=== PATIENT | male | born 1985 | race Caucasian/White ===

== ENCOUNTER 2022-10-01 06:24 | Emergency (ER) | payer MEDICAID, SELFPAY ==
--- NOTE | ~2022-10-01 | US_ITS ---
EXAMINATION: US SCROTUM CLINICAL INFORMATION: Left testicular pain. COMPARISON: CT abdomen of same day TECHNIQUE: A sonogram of the scrotum was performed assessing galicia-scale appearance and color Doppler flow. Spectral Doppler analysis of the arterial and venous flow were performed in the testes bilaterally. FINDINGS: RIGHT: Right testicle measures 4.2 x 2.3 x 3.1 cm, volume 15.4 mL. No focal testicular parenchymal lesions are visualized. Spectral Doppler analysis of the arterial and venous flow is normal in the right testis. Right epididymal head is normal in size. No right hydrocele or varicocele is seen. Right epididymal Doppler flow is normal. LEFT: Left testicle measures 4.0 x 2.0 x 3.2 cm, volume 13.4 mL. No focal testicular parenchymal lesions are visualized. Spectral Doppler analysis of the arterial and venous flow is increased in the left testis compared to right. Left epididymal head is normal in size. No left hydrocele or varicocele is seen. Left epididymal Doppler flow is increased compared to right. US/US scrotum doppler IMPRESSION: Findings consistent with epididymal orchitis without abscess or abnormal mass appreciated.
--- NOTE | ~2022-10-01 | CT_ITS ---
EXAMINATION: CT ABDOMEN AND PELVIS WITHOUT CONTRAST CLINICAL INFORMATION: Abdominal pain in the left upper and lower quadrants as well as the right lower quadrant. COMPARISON: None available.. TECHNIQUE: Multidetector volumetric imaging was performed from the lung bases to the pubic symphysis without contrast. Sagittal and coronal reformatted images were obtained on the technologist workstation. This CT examination was performed using dose optimization techniques as appropriate, variously including the following: *Automated exposure control. *Adjustment of mA and/or kV according to patient size (this includes techniques or standardized protocols for targeted exams where dose is matched to indication/reason for exam; i.e. extremities or head). *Use of iterative reconstruction technique. DLP: 754 mGy-cm FINDINGS: LUNG BASES: No abnormalities of the visualized lung bases. No demonstrated abnormalities of the visualized cardiac structures. ABDOMEN/PELVIS: Liver, Biliary Ducts, and Gallbladder: The unenhanced liver is normal in size and attenuation without focal hepatic lesions or biliary ductal dilatation. The gallbladder is physiologically distended without radiopaque gallstones, pericholecystic fluid, or significant gallbladder wall thickening. Pancreas: Nonspecific mild diffuse smooth narrowing of the normal pancreatic lobulations. Potential minimal peripancreatic fat stranding. No demonstrated focal pancreatic lesions nor pancreatic ductal dilatation. Adrenal Glands: The adrenal glands are normal in appearance. Spleen: The spleen is enlarged, measuring 13 cm in long axis. No demonstrated focal splenic lesions on the noncontrast evaluation. Kidneys and Ureters: The unenhanced kidneys are normal in size without evidence of nephrolithiasis or hydronephrosis. No ureterolithiasis or hydroureter. Urinary Bladder: The urinary bladder is partially distended without focal wall thickening. No bladder calculi are demonstrated. Gastrointestinal System: The stomach is decompressed and therefore not well evaluated on this exam. The small bowel is of normal caliber. The colon is normal in appearance without focal wall thickening or pericolonic inflammatory change. Normal appendix. Genitourinary: Normal appearance of the prostate gland. Intra-abdominal and Retroperitoneal Spaces: No intra-abdominal free fluid collections or gas. No mesenteric, retroperitoneal, or inguinal lymphadenopathy. VASCULATURE: The abdominal aorta is of normal contour and caliber. MUSCULOSKELETAL: Mild multilevel degenerative changes of the spine. Mild right convex curvature of the lumbar spine. No lytic or sclerotic osseous lesions demonstrated. No soft tissue masses demonstrated. CT/CT abdomen pelvis wo IV con IMPRESSION: 1. Potential mild peripancreatic fat stranding. No demonstrated discrete lesion or fluid collection associated with the pancreas. Recommend correlation for signs of potential mild interstitial edematous pancreatitis. 2. Nonspecific mild splenomegaly. 3. No additional CT abnormalities to explain the patient's symptoms.
--- NOTE | ~2022-10-01 | US_ITS ---
EXAMINATION: US SCROTUM CLINICAL INFORMATION: Left testicular pain. COMPARISON: CT abdomen of same day TECHNIQUE: A sonogram of the scrotum was performed assessing galicia-scale appearance and color Doppler flow. Spectral Doppler analysis of the arterial and venous flow were performed in the testes bilaterally. FINDINGS: RIGHT: Right testicle measures 4.2 x 2.3 x 3.1 cm, volume 15.4 mL. No focal testicular parenchymal lesions are visualized. Spectral Doppler analysis of the arterial and venous flow is normal in the right testis. Right epididymal head is normal in size. No right hydrocele or varicocele is seen. Right epididymal Doppler flow is normal. LEFT: Left testicle measures 4.0 x 2.0 x 3.2 cm, volume 13.4 mL. No focal testicular parenchymal lesions are visualized. Spectral Doppler analysis of the arterial and venous flow is increased in the left testis compared to right. Left epididymal head is normal in size. No left hydrocele or varicocele is seen. Left epididymal Doppler flow is increased compared to right. US/US scrotum IMPRESSION: Findings consistent with epididymal orchitis without abscess or abnormal mass appreciated.
[2022-10-01 06:29] VITALS: BP 139/64; PULSE 92; RESP 22; TEMP 36.7; O2SAT 99; BMI 29.2
[2022-10-01 06:50] LABS: MANUAL DIFF FLAG NO
[2022-10-01 06:53] LABS: Basophils Percent Auto 0.3 % (0-2); Eosinophils Absolute Auto 0.1 X10*3/uL (0.0-0.4); Hematocrit 46.2 % (42.0-52.0); Hemoglobin 16.8 g/dl (14.0-18.0); Imm Gran Abs Auto 0.01 X10*3/uL (0.00-0.03); Imm Gran Pct Auto 0.2 % (0.0-0.4); Lymphocytes Absolute Auto 1.3 X10*3/uL (1.2-4.9); Mean Corpuscular HGB Conc 36.4 g/dl (31.0-36.0); Mean Corpuscular Hemoglobin 31.3 pg (27.0-33.0); Mean Platelet Volume 9.2 fL (9.4-12.4); Monocytes Absolute Auto 0.3 X10*3/uL (0.1-1.2); Monocytes Percent Auto 4.5 % (2-11); Neutrophils Absolute Auto 4.5 x10*3/uL (2.0-8.3); Platelet Count 193 X10*3/uL (160-400); Red Blood Count 5.37 X10*6/uL (4.60-5.80); White Blood Count 6.2 X10*3/uL (4.8-10.8)
[2022-10-01 07:07] LABS: Anion Gap 16 (12-20); Blood Urea Nitrogen 17 mg/dL (9-16); Calcium 9.5 mg/dL (8.4-10.2); Carbon Dioxide 26 mmol/L (22-29); Chloride 102 mmol/L (96-108); Creatinine Clr Calc Pharmacy 124.4; Estimated Glomerular Filt Rate > 60; Glucose Random 106 mg/dL (60-115); Lipase 31 U/L (8-78); Potassium 4.1 mmol/L (3.3-5.1); Sodium 140 mmol/L (135-145)
[2022-10-01 07:25] VITALS: BP 131/73; PULSE 92; RESP 14; TEMP 36.9
--- NOTE | 2022-10-01 07:47 | PC.NURSE ---
pt. complains of LUQ pain as well as pelvic area pain 510. He states he hurt his left testicle a few days ago. does have a history of kidney stones but states this does not feel like kidney stones. will give us a urine sample
[2022-10-01 08:04] LABS: Appearance Urine Clear; Color Urine Yellow; Glucose Urine UA Negative (Negative); Leukocyte Esterase Urine Negative (Negative); Nitrite Urine Negative (Negative); PH 8.5 (5.0-9.0); Specific Gravity - Urine 1.015 (1.005-1.025); Urine Blood Negative (Negative); Urine Ketones 15 mg/dL (Negative); Urine Protein Negative (Neg-Trace)
[2022-10-01 08:31] LABS: Alanine Aminotransferase 20 U/L (0-40); Albumin Level 4.6 g/dL (3.5-5.0); Alkaline Phosphatase 71 U/L (39-117); Aspartate Amino Transferase 13 U/L (5-37); Bilirubin Direct 0.4 mg/dL (0.0-0.5); Bilirubin Total 1.2 mg/dL (0.0-1.0)
--- NOTE | 2022-10-01 08:31 | ED.ABDPAIN ---
HPI - Abdominal Pain General Chief Complaint: General Medical Stated Complaint: pain in left side Time Seen by Provider: 10/01/22 08:05 Source: patient Mode of arrival: ambulatory Limitations: no limitations History of Present Illness HPI narrative: 37yoM c PMHx of kidney stones presenting to the ER with complaints of left upper quadrant/left flank/left lower quadrant/suprapubic and right lower quadrant abdominal pain that started approximately to a.m. when he was sleeping woke him up out of his sleep. He reports he has never had this pain in the past. Does not feel like his normal kidney stones. He reports associated nausea and feeling like having to catch his breath. He reports a few days he pinched his left testicle and since then he has been having some soreness the left testicle. otherwise denies any other symptoms related to this. He denies any fevers, chills, dizziness, headaches, neck pain/stiffness, sore throat, nasal congestion/rhinorrhea, cough, chest pain, shortness of breath, dyspnea on exertion, orthopnea, palpitations, paresthesias, back pain, dysuria, hematuria, abnormal penile discharge, black or bloody stools, thoughts of STDs, recent travel or sick contacts, rashes or any other symptoms complaints or concerns at this time. MD elicited complaint: abdominal pain and flank pain Pertinent past history: kidney stones Onset (ago): hour(s) (Since 02:00 prior to arrival) Pain Consistency: constant Location: LUQ, RLQ, LLQ, L flank and suprapubic Severity: moderate Quality: aching Radiation: none Migration to: no migration Exacerbating factors: movement Relieving factors: nothing Associated symptoms: nausea Related Data Previous Rx's Medication Instructions Recorded doxycycline monohydrate 100 mg 100 mg PO BID 10 days #20 tabs 10/01/22 tablet Allergies Allergy/AdvReac Type Severity Reaction Status Date / Time No Known Allergies Allergy Verified 10/01/22 06:37 Review of Systems Review of Systems Constitutional : No Fever, No Chills, No Night Sweats, No Fatigue, No Malaise Cardiovascular : No Chest Pain, No SOB Respiratory : No Cough, No Sputum, No Wheezing, No Dyspnea Gastrointestinal : + Nausea, No Vomiting, No Diarrhea, + abdominal Pain, No Hematochezia, No Melena Genitourinary : No irregular bleeding, No Dysuria, No Urinary Frequency, No Hematuria,No Urinary Incontinence, No Urgency, + Flank Pain, + left testicular pain, no thoughts of STDs Musculoskeletal : No joint pain, No Myalgias, No Joint Swelling Skin : No Skin Lesions, No rash Neuro : No Weakness, No Numbness, No Paresthesias, No Loss of Consciousness, No Dizziness, No Headache Heme/Lymph: No Lymphadenopathy Endocrine : No Temperature Intolerance Yes all other systems are reviewed and are negative [facility] Past Medical History Attestation statement: The following information was validated with the patient. Source: old records reviewed and nursing notes reviewed Social History Social History Advance Directives: No Advance Directives Information Provided: No Physical Exam ED Vital Signs: Vital Signs - 24 hr 10/01/22 06:29 10/01/22 07:25 10/01/22 09:21 Temperature 98.1 F 98.4 F 98.5 F Pulse Rate 92 92 87 Respiratory Rate 22 H 14 14 Blood Pressure 139/64 131/73 118/73 Pulse Oximetry 99 98 Oxygen Delivery Method Room Air Room Air Room Air BMI result Body Mass Index 29.2 vital signs have been reviewed as normal and appeared to be correct. Blood pressure normal. Heart rate normal. Respiration rate 22. Temperature normal. Oxygen saturation normal. Appearance: Alert. Oriented X3. No acute distress. Head: Normal external exam. Normocephalic. Atraumatic. Eyes: PERRLA. EOMI. Conjunctiva and sclera normal. Eyelids normal. ENT: Pharynx normal. Uvula midline. Moist mucous membranes. No lesions/ulcerations or masses noted on the tongue. Normal voice. No trismus noted. No drooling noted. No muffled voice noted. Neck: Normal inspection. Neck supple. FROM. No adenopathy. Thyroid Normal. No tracheal deviation noted. No crepitus is noted. No meningeal signs. No neck mass noted. No signs of trauma noted. CVS: Normal heart rate and rhythm. Heart sound normal. Pulses normal throughout. No murmurs/rales/gallops. Respiratory: No respiratory distress. Painless inspiration. Breath sounds normal. No wheezes/rales/rhonchi noted. Chest nontender. No crepitus is noted. No signs of trauma noted. No accessory muscle usage noted or decreased air movement noted. Abdomen: Soft and moderate tenderness palpation with guarding to RLQ/LLQ/LUQ/Left Flank and suprapubic aspect of abdomen. Bowel sounds normal in all 4 quadrants. No distention noted. No organomegaly noted. No visible injury noted. Negative Rovsing sign. Negative obturator's sign. Negative psoas sign. Negative Villa sign. : Chaperoned by DOUGIE Watson. Normal external exam. No masses/lumps/ecchymosis/edema/erythema/lacerations/lesions/vesicles/induration or tenderness noted. No hernia noted. No inguinal lymphadenopathy noted. Normal penis free of discharge. The scrotum is normal. Testicles are both descended bilaterally and appear normal. No hydrocele or scrotal mass/swelling noted. No varicocele. Epididymides normal. No blue dot sign. Back: No CVA tenderness. Full range of motion noted. Nontender. No signs of trauma. Patient neuro intact bilaterally and distally on all 4 extremities. Patient's reflexes intact bilaterally and distally on all 4 extremities. No rashes/lesion/induration/fluctuance or signs of infection noted. Skin: Skin warm and dry. Normal skin color. Normal skin turgor. No rashes/lesions/lacerations noted. Extremities: Extremities exhibit normal range of motion and nontender. Neuro: Oriented X 3. No motor deficit. No sensory deficit. Reflexes normal. Normal steady gait. No focal neuro deficits noted. CN's II-XII intact bilaterally? Vascular: + radial pulses/+ 2 distal pedal pulses/+2 dorsalis pedis b/l. Normal cap refill. No cyanosis noted to upper extremity nails and lower extremity toes nails. Course Course Course Narrative: 8am - 37yoM c PMHx of kidney stones presenting to the ER with complaints of left upper quadrant/left flank/left lower quadrant/suprapubic and right lower quadrant abdominal pain that started approximately to a.m. when he was sleeping woke him up out of his sleep. He reports he has never had this pain in the past. Does not feel like his normal kidney stones. He reports associated nausea and feeling like having to catch his breath. He reports a few days he pinched his left testicle and since then he has been having some soreness the left testicle. otherwise denies any other symptoms related to this. Abdominal exam without peritoneal signs. No evidence of acute abdomen at this time. Well appearing. Low suspicion for acute hepatobiliary disease (includng acute cholecystitis), acute pancreatitis, PUD (including perforation), acute infectious processes (pneumonia, hepatitis, pyelonephritis), acute appendicitis, vascular catastrophe, bowel obstruction or viscus perforation. Presentation not consistent with other acute, emergent causes of abdominal pain at this time. Labs obtained while he was in the waiting room revealed - BUN 17. - total bilirubin 1.2. - lipase normal at 31 Otherwise all other labs are within normal limits. - UA revealed 15 ketones otherwise no evidence of UTI Plan: Will obtain testicular ultrasound along with CT scan abdomen pelvis and re-evaluate. Reevaluation(s) Reevaluation #1: CT scan of abdomen pelvis without IV contrast revealed potential mild peripancreatic fat stranding. No lesion or fluid collection a associated with the pancreas. Potential mild interstitial edematous pancreatitis. Mild splenomegaly otherwise no other acute processes to explain the patient's symptoms. - patient does not have an elevated white blood cell count, normal glucose, normal AST, and he is tolerating p.o. fluids/solids therefore less likely that this is pancreatitis although no need for admission at this time as patient is tolerating p.o. fluids as solids and pain is controlled I did not have to give him anything for pain while he was here in the emergency department he does not want anything to go home with. I printed out the results explained to the patient he should follow-up with his PCP regarding this and he develops any persistent or worsening symptoms to the left upper quadrant or develops any new symptoms such as fevers or nausea vomiting then he will need to return immediately. Scrotal ultrasound revealed epididymal orchitis without abscess or abnormal mass appreciated. - therefore at this time patient will be given for 500 mg of IM Rocephin and 100 mg of doxycycline p.o. b.i.d. for 10 days for possible STI treatment. I also sent a gonorrhea chlamydia urine along with mom's which are pending at this time. Patient understands and is agreeable to this plan. Time: 10:16 MDM - Abdominal Pain Medical Records Attestation: I reviewed the patient's medical records. Lab Data Attestation: I reviewed the patient's lab results. Result diagrams: 10/01/22 06:42 10/01/22 06:42 Labs: Lab Results 10/01/22 10/01/22 10/01/22 Range/Units 06:42 06:42 07:55 WBC 6.2 (4.8-10.8) X10*3/uL RBC 5.37 (4.60-5.80) X10*6/uL Hgb 16.8 (14.0-18.0) g/dl Hct 46.2 (42.0-52.0) % MCV 86.0 (80.0-98.0) fL MCH 31.3 (27.0-33.0) pg MCHC 36.4 H (31.0-36.0) g/dl RDW 12.0 (11.0-16.0) % Plt Count 193 (160-400) X10*3/uL MPV 9.2 L (9.4-12.4) fL Immature Gran % (Auto) 0.2 (0.0-0.4) % Neut % (Auto) 73.0 (45-73) % Lymph % (Auto) 21.0 (20-40) % [facility] [place] [facility] % (Auto) 4.5 (2-11) % Eos % (Auto) 1.0 (0-4) % Baso % (Auto) 0.3 (0-2) % Lymph # (Auto) 1.3 (1.2-4.9) X10*3/uL [facility] [place] [facility] # (Auto) 0.3 (0.1-1.2) X10*3/uL Eos # (Auto) 0.1 (0.0-0.4) X10*3/uL Baso # (Auto) 0.0 (0.0-0.2) X10*3/uL Abs Immat Gran (auto) 0.01 (0.00-0.03) X10*3/uL Absolute Neuts (auto) 4.5 (2.0-8.3) x10*3/uL Absolute Nucleated RBC 0.000 (0.0-0.012) X10*3/uL Nucleated RBC % (auto) 0.0 (0.0-0.2) /100WBC Sodium 140 (135-145) mmol/L Potassium 4.1 (3.3-5.1) mmol/L Chloride 102 (96-108) mmol/L Carbon Dioxide 26 (22-29) mmol/L Anion Gap 16 (12-20) BUN 17 H (9-16) mg/dL Creatinine 1.11 (0.5-1.4) mg/dL Estim Creat Clear Calc 124.4 Estimated GFR > 60 Random Glucose 106 (60-115) mg/dL Calcium 9.5 (8.4-10.2) mg/dL Magnesium 2.0 (1.6-2.6) mg/dL Total Bilirubin 1.2 H (0.0-1.0) mg/dL Direct Bilirubin 0.4 (0.0-0.5) mg/dL AST 13 (5-37) U/L ALT 20 (0-40) U/L Alkaline Phosphatase 71 (39-117) U/L Total Protein 7.0 (6.5-8.0) g/dL Albumin 4.6 (3.5-5.0) g/dL Lipase 31 (8-78) U/L Urine Color Yellow Urine Appearance Clear Urine pH 8.5 (5.0-9.0) Ur Specific Mcdowell 1.015 (1.005-1.025) Urine Protein Negative (Neg-Trace) mg/dL Urine Glucose (UA) Negative (Negative) mg/dL Urine Ketones 15 (Negative) mg/dL Urine Blood Negative (Negative) Urine Nitrite Negative (Negative) Ur Leukocyte Esterase Negative (Negative) Imaging Data Scrotal/Doppler ultrasound: Attestation: I personally reviewed and interpreted this imaging study as follows: Radiologist's impression: FINDINGS: RIGHT: Right testicle measures 4.2 x 2.3 x 3.1 cm, volume 15.4 mL. No focal testicular parenchymal lesions are visualized. Spectral Doppler analysis of the arterial and venous flow is normal in the right testis. Right epididymal head is normal in size. No right hydrocele or varicocele is seen. Right epididymal Doppler flow is normal. LEFT: Left testicle measures 4.0 x 2.0 x 3.2 cm, volume 13.4 mL. No focal testicular parenchymal lesions are visualized. Spectral Doppler analysis of the arterial and venous flow is increased in the left testis compared to right. Left epididymal head is normal in size. No left hydrocele or varicocele is seen. Left epididymal Doppler flow is increased compared to right. US/US scrotum IMPRESSION: Findings consistent with epididymal orchitis without abscess or abnormal mass appreciated. CT scan abdomen pelvis without IV contrast: Attestation: I personally reviewed and interpreted this imaging study as follows: Radiologist's impression: FINDINGS: LUNG BASES: No abnormalities of the visualized lung bases. No demonstrated abnormalities of the visualized cardiac structures. ABDOMEN/PELVIS: Liver, Biliary Ducts, and Gallbladder: The unenhanced liver is normal in size and attenuation without focal hepatic lesions or biliary ductal dilatation. The gallbladder is physiologically distended without radiopaque gallstones, pericholecystic fluid, or significant gallbladder wall thickening. Pancreas: Nonspecific mild diffuse smooth narrowing of the normal pancreatic lobulations. Potential minimal peripancreatic fat stranding. No demonstrated focal pancreatic lesions nor pancreatic ductal dilatation. Adrenal Glands: The adrenal glands are normal in appearance. Spleen: The spleen is enlarged, measuring 13 cm in long axis. No demonstrated focal splenic lesions on the noncontrast evaluation. Kidneys and Ureters: The unenhanced kidneys are normal in size without evidence of nephrolithiasis or hydronephrosis. No ureterolithiasis or hydroureter. Urinary Bladder: The urinary bladder is partially distended without focal wall thickening. No bladder calculi are demonstrated. Gastrointestinal System: The stomach is decompressed and therefore not well evaluated on this exam. The small bowel is of normal caliber. The colon is normal in appearance without focal wall thickening or pericolonic inflammatory change. Normal appendix. Genitourinary: Normal appearance of the prostate gland. Intra-abdominal and Retroperitoneal Spaces: No intra-abdominal free fluid collections or gas. No mesenteric, retroperitoneal, or inguinal lymphadenopathy. VASCULATURE: The abdominal aorta is of normal contour and caliber. MUSCULOSKELETAL: Mild multilevel degenerative changes of the spine. Mild right convex curvature of the lumbar spine. No lytic or sclerotic osseous lesions demonstrated. No soft tissue masses demonstrated. CT/CT abdomen pelvis wo IV con IMPRESSION: 1. Potential mild peripancreatic fat stranding. No demonstrated discrete lesion or fluid collection associated with the pancreas. Recommend correlation for signs of potential mild interstitial edematous pancreatitis. 2. Nonspecific mild splenomegaly. 3. No additional CT abnormalities to explain the patient's symptoms. ? Discharge Plan Discharge Clinical Impression: Acute epididymitis, Acute pancreatitis, Acute orchitis Patient Disposition: Home, Self-Care Instructions: Pancreatitis (ED), Epididymo-Orchitis (ED) Additional Instructions: You have pending lab results. If any are positive you will be contacted within 5-7 days. If you do not hear from us the results were negative. Prescriptions: New doxycycline monohydrate 100 mg tablet 100 mg PO BID 10 Days Qty: 20 0RF Referrals: Rojas Kapadia MD [Primary Care Provider] - 2 days (For follow-up regarding your CT scan results of the pancreas)
[2022-10-01 09:21] VITALS: BP 118/73; PULSE 87; RESP 14; TEMP 36.9; O2SAT 98
[2022-10-01 11:17] VITALS: BP 126/68; PULSE 78; RESP 14; TEMP 36.8; O2SAT 99
[2022-10-01] MEDS: cefTRIAXone sodium 500 MG, Lidocaine HCl 1 % MPF 1 ML IM (11:27)
[2022-10-01 12:06] LABS: CT PCR NOT DETECTED (Not Detect.); NG PCR NOT DETECTED (Not Detect.)
[2022-10-02 05:16] LABS: Syphilis Screen Nonreactive (Nonreactive)
[2022-10-05 22:34] LABS: Mumps Virus IgM Antibody <1:20 titer
== END 2022-10-01 11:34 | disposition home or self-care (01) ==
PROVIDERS: Physician Assistant Medical; Emergency Provider Emergency Medicine; PCP Internal Medicine
DX: N45.1 Epididymitis (principal); K85.90 Acute pancreatitis without necrosis or infection, unspecified; N45.2 Orchitis; R10.12 Left upper quadrant pain; R10.31 Right lower quadrant pain; Z79.899 Other long term (current) drug therapy
CPT/HCPCS: 36415; 74176; 76870; 80048; 80076; 81003; 83690; 83735; 85025; 86735; 86780; 87491; 87591; 93975; 96372; 99283; 99284; J0696

== ENCOUNTER 2022-10-19 14:12 | Emergency (ER) | payer MEDICAID, SELFPAY ==
[2022-10-19 14:22] VITALS: BP 153/85; PULSE 103; RESP 20; TEMP 37.2; O2SAT 98; BMI 29.2
--- NOTE | 2022-10-19 14:27 | ED.GENADULT ---
HPI - General Adult General Chief complaint: General Medical <ZACHARIAH Méndez - Last Filed: 10/23/22 12:32> Stated complaint: dizzy, nausea, genital issues <ZACHARIAH Méndez - Last Filed: 10/23/22 12:32> Time Seen by Provider: 10/19/22 21:18 <ZACHARIAH Méndez - Last Filed: 10/23/22 12:32> Source: patient <Benjamin Huston MD - Last Filed: 10/19/22 22:18> Mode of arrival: ambulatory <Benjamin Huston MD - Last Filed: 10/19/22 22:18> Limitations: no limitations <Benjamin Huston MD - Last Filed: 10/19/22 22:18> History of Present Illness HPI narrative: Patient complaining of chronic right testicular pain off and on was seen here 2 weeks ago ultrasound was normal no swelling or testicle no penile discharge at this time patient denies any significant pain. Patient had ultrasound done in the triage which was normal UA was normal <Benjamin Huston MD - Last Filed: 10/19/22 22:18> Related Data Home medications: Previous Rx's Medication Instructions Recorded doxycycline monohydrate 100 mg 100 mg PO BID 10 days #20 tabs 10/01/22 tablet <ZACHARIAH Méndez - Last Filed: 10/23/22 12:32> Allergies/adverse reactions: Allergies Allergy/AdvReac Type Severity Reaction Status Date / Time No Known Allergies Allergy Verified 10/01/22 06:37 <ZACHARIAH Méndez - Last Filed: 10/23/22 12:32> Review of Systems Review of Systems: Yes all other systems are reviewed and are negative <Benjamin Huston MD - Last Filed: 10/19/22 22:18> [facility] Social History Social History: Social History Advance Directives: No Advance Directives Information Provided: No <ZACHARIAH Méndez Last Filed: 10/23/22 12:32> Physical Exam ED Vital Signs: Vital Signs - 24 hr 10/19/22 14:22 10/19/22 21:38 Temperature 99.0 F 99.3 F Pulse Rate 103 H 78 Respiratory Rate 20 20 Blood Pressure 153/85 H 113/67 Pulse Oximetry 98 96 Oxygen Delivery Method Room Air Room Air BMI result Body Mass Index 29.2 <ZACHARIAH Méndez - Last Filed: 10/23/22 12:32> Vital Signs - 24 hr 10/19/22 14:22 10/19/22 21:38 Temperature 99.0 F 99.3 F Pulse Rate 103 H 78 Respiratory Rate 20 20 Blood Pressure 153/85 H 113/67 Pulse Oximetry 98 96 Oxygen Delivery Method Room Air Room Air BMI result Body Mass Index 29.2 <Benjamin Huston MD - Last Filed: 10/19/22 22:18> Const General: cooperative, healthy appearing and comfortable <Benjamin Huston MD - Last Filed: 10/19/22 22:18> Resp Effort & Inspection: normal respiratory effort <Benjamin Huston MD - Last Filed: 10/19/22 22:18> Auscultation: clear to auscultation bilaterally <Benjamin Huston MD - Last Filed: 10/19/22 22:18> Cardio Rate: regular rate <Benjamin Huston MD - Last Filed: 10/19/22 22:18> Rhythm: regular rhythm <Benjamin Huston MD - Last Filed: 10/19/22 22:18> GI Palpation (GI): Soft to palpation and nontender <Benjamin Huston MD - Last Filed: 10/19/22 22:18> General: Yes no CVA tenderness <Benjamin Huston MD - Last Filed: 10/19/22 22:18> Male General Exam: Yes normal external exam, No hernia and No inguinal lymphadenopathy <Benjamin Huston MD - Last Filed: 10/19/22 22:18> Penis: normal penis <Benjamin Huston MD - Last Filed: 10/19/22 22:18> Scrotum: scrotum normal <Benjamin Huston MD - Last Filed: 10/19/22 22:18> Testes: Testes normal, epididymides normal and no epidiymal masses <Benjamin Huston MD - Last Filed: 10/19/22 22:18> Back/Spine/Pelvis Back: no CVA tenderness <Benjamin Huston MD - Last Filed: 10/19/22 22:18> Course Course Course Narrative: RME: RIght testicular pain since this morning. no abdomial pain, nuasea, or vomitting. patient had left orchitis 2 weeks ago. uA, CTNG, and ultrasound ordered <ZACHARIAH Méndez - Last Filed: 10/23/22 12:32> Medical Decision Making Medical Decision Making MDM Narrative: Patient with normal appearing testicles two ultrasoundsin 2 weeks negative patient advised to follow with urologist <Benjamin Huston MD - Last Filed: 10/19/22 22:18> Lab Data Labs: Lab Results 10/19/22 10/19/22 Range/Units 19:13 19:14 Urine Color Yellow Urine Appearance Clear Urine pH 6.5 (5.0-9.0) Ur Specific [employer] 1.020 (1.005-1.025) Urine Protein Negative (Neg-Trace) mg/dL Urine Glucose (UA) Negative (Negative) mg/dL Urine Ketones 15 (Negative) mg/dL Urine Blood Negative (Negative) Urine Nitrite Negative (Negative) Ur Leukocyte Esterase Negative (Negative) Chlam trachomat DNA PCR NOT DETECTED (Not Detect.) N.gonorrhoeae DNA (PCR) NOT DETECTED (Not Detect.) <ZACHARIAH Méndez - Last Filed: 10/23/22 12:32> Lab Results 10/19/22 10/19/22 Range/Units 19:13 19:14 Urine Color Yellow Urine Appearance Clear Urine pH 6.5 (5.0-9.0) Ur Specific [employer] 1.020 (1.005-1.025) Urine Protein Negative (Neg-Trace) mg/dL Urine Glucose (UA) Negative (Negative) mg/dL Urine Ketones 15 (Negative) mg/dL Urine Blood Negative (Negative) Urine Nitrite Negative (Negative) Ur Leukocyte Esterase Negative (Negative) Chlam trachomat DNA PCR NOT DETECTED (Not Detect.) N.gonorrhoeae DNA (PCR) NOT DETECTED (Not Detect.) <Benjamin Huston MD - Last Filed: 10/19/22 22:18> Discharge Plan Discharge Clinical Impression: Pain in right testicle <ZACHARIAH Méndez - Last Filed: 10/23/22 12:32> Patient Disposition: Home, Self-Care <ZACHARIAH Méndez - Last Filed: 10/23/22 12:32> Instructions: Testicle Pain (ED) <ZACHARIAH Méndez - Last Filed: 10/23/22 12:32> Additional Instructions: Etiology of your testicle pain is not clear Ultrasound urine is negative Follow-up with PCP/urology <ZACHARIAH Méndez - Last Filed: 10/23/22 12:32> Prescriptions: No Action doxycycline monohydrate 100 mg tablet 100 mg PO BID 10 Days Qty: 20 0RF <ZACHARIAH Méndez - Last Filed: 10/23/22 12:32> Referrals: Terrence Romero MD [Physician] - 2 weeks <ZACHARIAH Méndez - Last Filed: 10/23/22 12:32> Interventions: ED Discharge Assessment Last Done: 10/19/22 21:40 <ZACHARIAH Méndez - Last Filed: 10/23/22 12:32> Discharge Date/Time: 10/19/22 21:40 <ZACHARIAH Méndez - Last Filed: 10/23/22 12:32>
[2022-10-19 19:21] LABS: Appearance Urine Clear; Color Urine Yellow; Glucose Urine UA Negative (Negative); Leukocyte Esterase Urine Negative (Negative); Nitrite Urine Negative (Negative); PH 6.5 (5.0-9.0); Urine Blood Negative (Negative); Urine Ketones 15 mg/dL (Negative); Urine Protein Negative (Neg-Trace)
[2022-10-19 21:38] VITALS: BP 113/67; PULSE 78; RESP 20; TEMP 37.4; O2SAT 96
[2022-10-20 14:21] LABS: CT PCR NOT DETECTED (Not Detect.); NG PCR NOT DETECTED (Not Detect.)
== END 2022-10-19 21:40 | disposition home or self-care (01) ==
PROVIDERS: Physician Assistant; Emergency Provider Internal Medicine; PCP Internal Medicine
DX: N50.811 Right testicular pain (principal)
CPT/HCPCS: 76870; 81003; 87491; 87591; 93975; 99283; 99284

== ENCOUNTER 2022-10-31 13:27 | Emergency (ER) | payer MEDICAID, SELFPAY ==
--- NOTE | ~2022-10-31 | XR_ITS ---
EXAMINATION: CHEST AND SOFT TISSUE NECK CLINICAL INFORMATION: Painful swelling COMPARISON: None TECHNIQUE: 2 views soft tissue neck. Chest 2 views. FINDINGS: Chest: The lungs are well-expanded and clear. The heart size and pulmonary vascularity is normal. No gross bony abnormality seen. Soft tissue neck: The airways widely patent. There is no soft tissue mass or radiopaque foreign body. The prevertebral soft tissues are normal. The vertebral alignment is normal. XR/XR chest 2V IMPRESSION: 1. Unremarkable chest exam. 2. Unremarkable soft tissue neck exam.
--- NOTE | ~2022-10-31 | XR_ITS ---
EXAMINATION: CHEST AND SOFT TISSUE NECK CLINICAL INFORMATION: Painful swelling COMPARISON: None TECHNIQUE: 2 views soft tissue neck. Chest 2 views. FINDINGS: Chest: The lungs are well-expanded and clear. The heart size and pulmonary vascularity is normal. No gross bony abnormality seen. Soft tissue neck: The airways widely patent. There is no soft tissue mass or radiopaque foreign body. The prevertebral soft tissues are normal. The vertebral alignment is normal. XR/XR soft tissue neck IMPRESSION: 1. Unremarkable chest exam. 2. Unremarkable soft tissue neck exam.
[2022-10-31 13:59] VITALS: BP 149/79; PULSE 99; RESP 16; TEMP 36.6; O2SAT 96; BMI 29.2
--- NOTE | 2022-10-31 13:59 | ED.URI ---
HPI - URI/Sore Throat General Chief Complaint: General Medical <ZACHARIAH Viramontes - Last Filed: 10/31/22 14:03> Stated Complaint: Trouble swallowing/Pressure in throat <ZACHARIAH Viramontes - Last Filed: 10/31/22 14:03> Time Seen by Provider: 10/31/22 16:31 <ZACHARIAH Viramontes - Last Filed: 10/31/22 14:03> Source: patient <Mariangel Bates CNP - Last Filed: 10/31/22 17:26> Mode of arrival: ambulatory <Mariangel Bates CNP - Last Filed: 10/31/22 17:26> Limitations: no limitations <Mariangel Bates CNP - Last Filed: 10/31/22 17:26> History of Present Illness HPI Narrative: Patient is a 37-year-old male presents to the emergency department for evaluation of throat pain/pressure. He states that today after eating cake he developed painful swallowing, and a sensation like something is stuck in his throat. He states at times the sensation is also fell lower in the midline of his chest. Denies any symptoms preceding this event. Denies history of acid reflux/GERD. Denies recent URI symptoms. Denies fevers or chills, shortness of breath, difficulty breathing. <Mariangel Bates CNP - Last Filed: 10/31/22 17:26> Related Data Home Medications: Previous Rx's Medication Instructions Recorded doxycycline monohydrate 100 mg 100 mg PO BID 10 days #20 tabs 10/01/22 tablet aluminum-mag hydroxide-simethicone 5 ml PO 5XD PRN indigestion #355 mL 10/31/22 200 mg-200 mg-20 mg/5 mL oral susp (Maalox Advanced) omeprazole magnesium 20 mg 20 mg PO BID #14 tabs 10/31/22 tablet,delayed release (Prilosec OTC) <ZACHARIAH Viramontes - Last Filed: 10/31/22 14:03> Allergies/Adverse Reactions: Allergies Allergy/AdvReac Type Severity Reaction Status Date / Time No Known Allergies Allergy Verified 10/31/22 13:58 <ZACHARIAH Viramontes - Last Filed: 10/31/22 14:03> Review of Systems Review of Systems: Constitutional: No fever. No chills. No weakness. No fatigue. ENT/ Mouth: No Ear Pain, no Nasal Congestion, positive sore throat, No Rhinorrhea, positive Swallowing Difficulty. Positive globus sensation Skin: No rash or itching. Cardiovascular: No chest pain. No palpitations. Respiratory: No shortness of breath. No cough. No sputum production. Gastrointestinal: No nausea. No vomiting. No diarrhea. No abdominal pain. Genitourinary: No burning micturition. No urinary frequency. Neurologic: No headache. No dizziness. No syncope. No numbness or tingling in the extremities. Musculoskeletal: No muscle pain. No back pain. No joint pain or stiffness. <Mariangel Bates CNP - Last Filed: 10/31/22 17:26> Yes all other systems are reviewed and are negative <Mariangel Bates CNP - Last Filed: 10/31/22 17:26> [facility] Past Medical History Attestation statement: The following information was validated with the patient. <Mariangel Bates CNP - Last Filed: 10/31/22 17:26> Source: old records reviewed <Mariangel Bates CNP - Last Filed: 10/31/22 17:26> Medical History: Medical History No pertinent past medical history <ZACHARIAH Viramontes - Last Filed: 10/31/22 14:03> Social History Social History: Social History Alcohol intake: never Smoked in Last 30 Days: No Use of substances other than those prescribed or required for medical reasons: No Advance Directives: No Advance Directives Information Provided: Yes Advance Directives on File: No <ZACHARIAH Viramontes - Last Filed: 10/31/22 14:03> Physical Exam Vital Signs: Vital Signs: Last Vital Signs Temp 99 F 10/31/22 16:25 Pulse 75 10/31/22 16:25 Resp 18 10/31/22 16:25 BP 132/80 10/31/22 16:25 Pulse Ox 98 10/31/22 16:25 O2 Del Method 10/31/22 16:25 BMI result Body Mass Index 29.2 <ZACHARIAH Viramontes - Last Filed: 10/31/22 14:03> Vital Signs: Last Vital Signs Temp 99 F 10/31/22 16:25 Pulse 75 10/31/22 16:25 Resp 18 10/31/22 16:25 BP 132/80 10/31/22 16:25 Pulse Ox 98 10/31/22 16:25 O2 Del Method 10/31/22 16:25 BMI result Body Mass Index 29.2 Vital signs have been reviewed as normal and appeared to be correct. Blood pressure normal.? Heart rate normal.? Respiration rate normal. Temperature normal.? Oxygen saturation normal. <Mariangel Bates CNP - Last Filed: 10/31/22 17:26> Appearance: Alert.?Oriented to person, place and time. No acute distress.?Normal affect. Eyes: Pupils equal, round and reactive to light.? ENT: TM normal bilaterally. Pharynx normal, no erythema, exudates, tonsillar hypertrophy. Neck: Normal inspection.? Neck supple.??No cervical adenopathy CVS: Heart sounds normal. Normal heart rate and rhythm.? Pulses normal.?? Respiratory: No respiratory distress.? Lung sounds clear to auscultation bilaterally?? Abdomen: Soft and non-tender. Normoactive bowel sounds. Skin: Skin warm and dry.? Normal skin color.? ? Extremities: No lower extremity edema.? Neuro: Moves all extremities spontaneously. Sensation intact bilaterally. No motor deficits. Ambulates with normal steady gait. <Mariangel Bates CNP - Last Filed: 10/31/22 17:26> Course Course Course Narrative: RME--37yo M c/o difficulty/painful swelling s/p eating cake with hard crust. Reports throat pressure worse after eating. Denies SOB/CP, fever/chills. Oropharynx WNL on exam, no stridor, talking in complete sentences Soft tissue neck, CXR, strep throat, COVID/influenza testing ordered in triage as well as viscous lidocaine/Maalox <ZACHARIAH Viramontes - Last Filed: 10/31/22 14:03> Medications Administered Discontinued Medications Generic Name Dose Route Start Last Admin Trade Name Freq PRN Reason Stop Dose Admin Al Hydroxide/Mg Hydroxide 30 ml 10/31/22 13:59 10/31/22 16:28 Magnesium Hydrox/Alum Hydrox 30 Ml Oral.Susp PO 10/31/22 14:00 30 ml ONCE ONE Administration Lidocaine HCl 15 ml 10/31/22 13:59 10/31/22 16:28 Lidocaine Hcl Viscous 2 % 15 Ml Solution MUCOUS MEM 10/31/22 14:00 15 ml ONCE ONE Administration <ZACHARIAH Viramontes - Last Filed: 10/31/22 14:03> Medications Administered Discontinued Medications Generic Name Dose Route Start Last Admin Trade Name Darling PRN Reason Stop Dose Admin Al Hydroxide/Mg Hydroxide 30 ml 10/31/22 13:59 10/31/22 16:28 Magnesium Hydrox/Alum Hydrox 30 Ml Oral.Susp PO 10/31/22 14:00 30 ml ONCE ONE Administration Lidocaine HCl 15 ml 10/31/22 13:59 10/31/22 16:28 Lidocaine Hcl Viscous 2 % 15 Ml Solution MUCOUS MEM 10/31/22 14:00 15 ml ONCE ONE Administration <Mariangel Bates CNP - Last Filed: 10/31/22 17:26> Medical Decision Making Medical Decision Making MDM Narrative: Patient is a 37-year-old male presents to the emergency department for evaluation of sore throat/pressure, and globus sensation after eating cake today. Reviewed RME, COVID-19/influenza/strep testing are negative. Patient is without any respiratory distress, he is speaking clear full sentences, no hypoxia or tachypnea. Reviewed chest x-ray and soft tissue of the neck x-ray, both are without any acute findings. Received Maalox with lidocaine viscous. Afterwards Patient provided with sandwich, pudding, and water while in the emergency department and was able to tolerate this without complication. No vomiting, or difficulty swallowing. At this time globus sensation does not appear consistent with a complete blockage, no indication for emergent EGD. Tolerating oral intake. Discussed plan of care for discharge home, provided with prescription for Maalox and omeprazole. Advised outpatient follow-up with primary care provider. Discussed worrisome signs and symptoms that would warrant re-evaluation in the emergency department. All questions answered. Patient stable for discharge. <Mariangel Bates CNP - Last Filed: 10/31/22 17:26> Differential Diagnosis Differential Diagnoses: The differential diagnosis associated with the presentation includes (Food bolus, GERD, viral upper respiratory infection, pharyngitis, mass) <Mariangel Bates CNP - Last Filed: 10/31/22 17:26> Lab Data MDM Lab Attestation statement: I reviewed the patient's lab results. <Mariangel Bates CNP - Last Filed: 10/31/22 17:26> Labs: Lab Results 10/31/22 10/31/22 10/31/22 Range/Units 14:39 14:39 14:39 COVID-19 ([facility]HELLY) Negative (Negative) COVID-19 Clin Com See Note Influenza Type A ([facility]) Negative (Negative) Influenza Type B ([facility]IS) Negative (Negative) Influenza A & B Note See Note S. pyogenes GrpA BELKIS Negative (Negative) <ZACHARIAH Viramontes - Last Filed: 10/31/22 14:03> Lab Results 10/31/22 10/31/22 10/31/22 Range/Units 14:39 14:39 14:39 COVID-19 (SHELLY) Negative (Negative) COVID-19 Clin Com See Note Influenza Type A (BELKIS) Negative (Negative) Influenza Type B ([facility]IS) Negative (Negative) Influenza A & B Note See Note S. pyogenes GrpA BELKIS Negative (Negative) <Mariangel Bates CNP - Last Filed: 10/31/22 17:26> Independent Interpretation I performed an independent interpretation of an: Plain X-Ray <Mariangel Bates CNP - Last Filed: 10/31/22 17:26> Interpretation: Have personally interpreted chest x-ray and soft tissue neck x-ray and agree with radiologist impression <Mariangel Bates CNP - Last Filed: 10/31/22 17:26> Radiology Impression Discussion of test interpretation with radiology: I have reviewed the radiologist's reading. <Mariangel Bates CNP - Last Filed: 10/31/22 17:26> Radiologist Impression: FINDINGS: Chest: The lungs are well-expanded and clear. The heart size and pulmonary vascularity is normal. No gross bony abnormality seen. Soft tissue neck: The airways widely patent. There is no soft tissue mass or radiopaque foreign body. The prevertebral soft tissues are normal. The vertebral alignment is normal.? XR/XR soft tissue neck IMPRESSION: 1.? Unremarkable chest exam. 2.? Unremarkable soft tissue neck exam. <Mariangel Bates CNP - Last Filed: 10/31/22 17:26> Prescription Management I considered prescription management with: Other (Prescription for Maalox on omeprazole sent to patient's pharmacy) <Mariangel Bates CNP - Last Filed: 10/31/22 17:26> Discharge Plan Discharge Clinical Impression: Globus sensation <ZACHARIAH Viramontes - Last Filed: 10/31/22 14:03> Patient Disposition: Home, Self-Care <ZACHARIAH Viramontes - Last Filed: 10/31/22 14:03> Additional Instructions: As we discussed your testing for COVID-19, influenza, and strep were negative. The x-ray of your chest and neck were normal. While in the emergency department you were able to tolerate eating and drinking without regurgitation or vomiting of food. If there was a total blockage or obstruction related to a bolus of food he would be unable to tolerate eating and drinking. Therefore it is reassuring that you were able to tolerate this. You have been given a prescription for Maalox and Prilosec both of which were sent electronically to the pharmacy. Please use these as instructed. Be sure to drink plenty of fluids especially while you are eating solid food to assist with passing. If you develop any new or worsening symptoms or concerns he may return back to the emergency department. <ZACHARIAH Viramontes - Last Filed: 10/31/22 14:03> Prescriptions: New alum-mag hydroxide-simeth [Maalox Advanced] 200-200-20 mg/5 mL suspension 5 ml PO 5XD PRN (Reason: indigestion) Qty: 355 0RF Rx Instructions: administer between meals and at bedtime omeprazole magnesium [Prilosec OTC] 20 mg tablet,delayed release (DR/EC) 20 mg PO BID Qty: 14 0RF No Action doxycycline monohydrate 100 mg tablet 100 mg PO BID 10 Days Qty: 20 0RF <ZACHARIAH Viramontes - Last Filed: 10/31/22 14:03> Referrals: Physician,None [Primary Care Provider] - <ZACHARIAH Viramontes - Last Filed: 10/31/22 14:03>
[2022-10-31 15:03] LABS: IDNOW Serial# 6674DD1D; Strep A Nucleic Acid Negative (Negative)
[2022-10-31 15:04] LABS: COVID-19 Test Negative (Negative); IDNOW Serial# 16C4AD1C; IDNOW Serial# BCCEAD1C; Influenza A Negative (Negative); Influenza B2 Negative (Negative)
[2022-10-31 16:25] VITALS: BP 132/80; PULSE 75; RESP 18; TEMP 37.2; O2SAT 98
[2022-10-31] MEDS: Lidocaine HCl Viscous 2 % 15 ML SOLUTION MUCOUS MEM (16:28)
[2022-10-31] MEDS: Magnesium Hydrox/Alum Hydrox 30 ML ORAL.SUSP PO (16:28)
--- NOTE | 2022-10-31 16:30 | PC.NURSE ---
patient a&ox3, pt medicated per order, vss, pt states he ate cake with a hard crust which caused the initial pain
== END 2022-10-31 17:25 | disposition home or self-care (01) ==
PROVIDERS: Physician Assistant; Emergency Provider Student in an Organized Health Care Education/Training Program
DX: F45.8 Other somatoform disorders (principal); Z20.822 Contact with and (suspected) exposure to COVID-19
CPT/HCPCS: 70360; 71046; 87502; 87635; 87651; 99283; 99284

== ENCOUNTER 2023-03-26 14:51 | Emergency (ER) | payer OTHER, SELFPAY ==
--- NOTE | ~2023-03-26 | CT_ITS ---
EXAMINATION: CT ABDOMEN AND PELVIS WITH CONTRAST CLINICAL INFORMATION: Pain of right lower quadrant. COMPARISON: 10/01/2022 TECHNIQUE: Multidetector volumetric images were obtained from the superior aspect of the liver through the pubic symphysis following administration 85 mL of Omnipaque 350 intravenous contrast. Sagittal and coronal reformatted images were obtained on the technologist's workstation. This CT examination was performed using dose optimization techniques as appropriate, variously including the following: *Automated exposure control *Adjustment of mA and/or kV according to patient size (this includes techniques or standardized protocols for targeted exams where dose is matched to indication/reason for exam; i.e. extremities or head) *Use of iterative reconstruction technique DLP: 709 mGy-cm FINDINGS: LUNG BASES: Normal. No pulmonary consolidation or pleural effusion. LIVER: The liver has normal size, shape, and attenuation. No evidence of liver mass. GALLBLADDER AND BILIARY TREE: Gallbladder is without radiopaque stones, wall thickening or pericholecystic fluid. No dilated bile ducts. PANCREAS: Normal. No edema, pancreatic ductal dilatation or mass. SPLEEN: Mild splenomegaly is unchanged compared to 10/01/2022; spleen measures up to 13.9 cm maximum dimension. No focal splenic lesion. ADRENAL GLANDS: Normal. KIDNEYS AND URETERS: The kidneys have normal size and cortical thickness. No perinephric edema or fluid collection. No urolithiasis or hydroureteronephrosis. BLADDER: Normal. No calculi or wall thickening. BOWEL AND PERITONEUM: Stomach is unremarkable. No dilated loops of bowel. The appendix is normal. No overt bowel wall thickening or mesenteric fat stranding. No free fluid or pneumoperitoneum. ABDOMINAL WALL: Unremarkable. No evidence of abdominal wall or inguinal hernia. VASCULATURE: Unremarkable. LYMPH NODES: No pathologic sized lymph nodes in the abdomen or pelvis. No inguinal lymphadenopathy. PELVIC VISCERA: Unremarkable. MUSCULOSKELETAL: No acute or suspicious osseous abnormality. CT/CT abdomen pelvis w IV con IMPRESSION: * No acute imaging abnormalities in the abdomen or pelvis compared to 10/01/2022. * The appendix is normal. No inflammatory changes or obstruction along the gastrointestinal tract. * Persistent mild splenomegaly.
[2023-03-26 15:29] VITALS: BP 136/79; PULSE 95; RESP 20; TEMP 36.9; O2SAT 99; BMI 28.5
--- NOTE | 2023-03-26 15:32 | ED.GENADULT ---
HPI - General Adult General Chief complaint: Abdominal Pain Stated complaint: Abd pain/discomfort Time Seen by Provider: 03/26/23 17:48 Source: patient Mode of arrival: ambulatory Limitations: no limitations History of Present Illness HPI narrative: Patient comes emergency room complaining of right lower quadrant pain for about a week but gradually getting worse. Patient denies nausea vomiting or diarrhea, complaining of constipation. Denies fever chills, no flank pain. No dysuria hematuria. Related Data Previous Rx's Medication Instructions Recorded doxycycline monohydrate 100 mg 100 mg PO BID 10 days #20 tabs 10/01/22 tablet aluminum-mag hydroxide-simethicone 5 ml PO 5XD PRN indigestion #355 mL 10/31/22 200 mg-200 mg-20 mg/5 mL oral susp (Maalox Advanced) omeprazole magnesium 20 mg 20 mg PO BID #14 tabs 10/31/22 tablet,delayed release (Prilosec OTC) Allergies Allergy/AdvReac Type Severity Reaction Status Date / Time No Known Allergies Allergy Verified 10/31/22 13:58 Review of Systems Review of Systems: Constitutional : No Weight loss, No Fever, No Chills, No Night Sweats, No Fatigue, No Malaise ENT/Mouth : No Hearing loss, No Ear Pain, No Nasal Congestion, No Sinus Pain, No Hoarseness, No sore throat, No Rhinorrhea, No Swallowing Difficulty Eyes: No Eye Pain, No Swelling, No Redness, No Foreign Body, No Discharge, No Vision Changes Cardiovascular : No Chest Pain, No SOB, No Dyspnea on Exertion, No Orthopnea, No Edema, No Palpitations Respiratory : No Cough, No Sputum, No Wheezing, No Smoke Exposure, No Dyspnea Gastrointestinal : No Nausea, No Vomiting, No Diarrhea, complain of constipation of right lower quadrant pain, no melena Genitourinary : no irregular bleeding, No Dysuria, No Urinary Frequency, No Hematuria, No Urinary Incontinence, No Urgency, No Flank Pain, No Urinary Flow Changes, No Hesitancy Musculoskeletal : No joint pain, No Myalgias, No Joint Swelling Skin : No Skin Lesions, No rash Neuro : No Weakness, No Numbness, No Paresthesias, No Loss of Consciousness, No Dizziness, No Headache Psych : No Anxiety/Panic, No Depression, No SI/HI/AH/VH, No Social Issues, Heme/Lymph: No Bruising, No Bleeding,No Lymphadenopathy Endocrine : No Polyuria, No Polydipsia, No Temperature Intolerance [facility] Past Medical History Medical History No pertinent past medical history Social History Social History Alcohol intake: never Smoked in Last 30 Days: No Use of substances other than those prescribed or required for medical reasons: No Advance Directives: No Advance Directives Information Provided: No Physical Exam ED Vital Signs: Vital Signs - 24 hr 03/26/23 15:29 03/26/23 18:17 03/26/23 19:34 Temperature 98.4 F 98.3 F 98.3 F Pulse Rate 95 74 80 Respiratory Rate 20 12 Blood Pressure 136/79 117/75 121/77 Pulse Oximetry 99 98 99 Oxygen Delivery Method Room Air Room Air Room Air BMI result Body Mass Index 28.5 Const Other: Appearance: Alert. Oriented X3. No acute distress. Eyes: Pupils equal, round and reactive to light. ENT: Pharynx normal. Neck: Normal inspection. Neck supple. No lymph nodes noted. No crepitus CVS: Normal heart rate and rhythm. Pulses normal. Normal S1 and S2 Respiratory: No respiratory distress. Breath sounds normal. No Wheezing. No rales Abdomen: Soft pain to palpation on the right lower quadrant with mild rebound, no guarding No rigidity. No distention. Skin: Skin warm and dry. Normal skin color. Normal skin turgor. Extremities: No lower extremity edema. No Lacerations. No Rash Neuro: Oriented X 3. No motor deficit. No sensory deficit. Moving all extremities. No slurred speech. CN 2 through 12 grossly intact Psych: calm, cooperative, normal affect Course Course Course Narrative: RME: 37 yold male presents to the ED for RLQ abdominal pain for one week. no complaitns. patient had bowel movements today. labs and UA ordered. Medications Administered Discontinued Medications Generic Name Dose Route Start Last Admin Trade Name Freq PRN Reason Stop Dose Admin Iohexol 100 ml 03/26/23 18:45 03/26/23 18:45 Iohexol 350 Mg/Ml 100 Ml Infus..Btl IV 03/26/23 18:46 85 ml ONCE ONE Administration Medical Decision Making Medical Decision Making [facility] Narrative: -patient's viable so count 8.1, LFTs within normal -CT scan of the abdomen pelvis does not show any acute abnormality. -urinalysis shows trace leukocyte esterase, no bacteria in the urine, no white blood cell counts. Patient has no dysuria, antibiotics not recommended at this time. Lab Data [facility] Lab Attestation statement: I reviewed the patient's lab results. 03/26/23 16:20 03/26/23 16:20 Labs: Lab Results 03/26/23 03/26/23 03/26/23 Range/Units 16:20 16:20 16:20 WBC 8.1 (4.8-10.8) X10*3/uL RBC 5.33 (4.60-5.80) X10*6/uL Hgb 16.9 (14.0-18.0) g/dl Hct 46.8 (42.0-52.0) % MCV 87.8 (80.0-98.0) fL MCH 31.7 (27.0-33.0) pg MCHC 36.1 H (31.0-36.0) g/dl RDW 12.3 (11.0-16.0) % Plt Count 204 (160-400) X10*3/uL MPV 9.4 (9.4-12.4) fL Immature Gran % (Auto) 0.4 (0.0-0.4) % Neut % (Auto) 76.2 H (45-73) % Lymph % (Auto) 15.4 L (20-40) % Cooke % (Auto) 5.4 (2-11) % Eos % (Auto) 2.1 (0-4) % Baso % (Auto) 0.5 (0-2) % Lymph # (Auto) 1.3 (1.2-4.9) X10*3/uL Cooke # (Auto) 0.4 (0.1-1.2) X10*3/uL Eos # (Auto) 0.2 (0.0-0.4) X10*3/uL Baso # (Auto) 0.0 (0.0-0.2) X10*3/uL Abs Immat Gran (auto) 0.03 (0.00-0.03) X10*3/uL Absolute Neuts (auto) 6.2 (2.0-8.3) x10*3/uL Absolute Nucleated RBC 0.000 (0.0-0.012) X10*3/uL Nucleated RBC % (auto) 0.0 (0.0-0.2) /100WBC PT 11.7 (10.0-13.1) SEC INR 1.0 (0.9-1.1) APTT 30.2 (26.0-36.4) SEC Sodium 139 (135-145) mmol/L Potassium 4.8 (3.3-5.1) mmol/L Chloride 104 (96-108) mmol/L Carbon Dioxide 28 (22-29) mmol/L Anion Gap 12 (12-20) BUN 16 (9-16) mg/dL Creatinine 1.21 (0.5-1.4) mg/dL Estim Creat Clear Calc 112.8 Estimated GFR > 60 Random Glucose 104 (60-115) mg/dL Calcium 9.5 (8.4-10.2) mg/dL Total Bilirubin 1.1 H (0.0-1.0) mg/dL AST 15 (5-37) U/L ALT 21 (0-40) U/L Alkaline Phosphatase 70 (39-117) U/L Total Protein 7.0 (6.5-8.0) g/dL Albumin 4.5 (3.5-5.0) g/dL Lipase 28 (8-78) U/L Urine Color Urine Appearance Urine pH (5.0-9.0) Ur Specific [place] (1.005-1.025) Urine Protein (Neg-Trace) mg/dL Urine Glucose (UA) (Negative) mg/dL Urine Ketones (Negative) mg/dL Urine Blood (Negative) Urine Nitrite (Negative) Ur Leukocyte Esterase (Negative) Urine RBC (0-2) /HPF Urine WBC (0-5) /HPF Ur Squamous Epith Cells (0-2) /HPF Urine Bacteria (None Seen) Hyaline Casts (0-2) /LPF 03/26/23 Range/Units 18:22 WBC (4.8-10.8) X10*3/uL RBC (4.60-5.80) X10*6/uL Hgb (14.0-18.0) g/dl Hct (42.0-52.0) % MCV (80.0-98.0) fL MCH (27.0-33.0) pg MCHC (31.0-36.0) g/dl RDW (11.0-16.0) % Plt Count (160-400) X10*3/uL MPV (9.4-12.4) fL Immature Gran % (Auto) (0.0-0.4) % Neut % (Auto) (45-73) % Lymph % (Auto) (20-40) % Cooke % (Auto) (2-11) % Eos % (Auto) (0-4) % Baso % (Auto) (0-2) % Lymph # (Auto) (1.2-4.9) X10*3/uL [place] # (Auto) (0.1-1.2) X10*3/uL Eos # (Auto) (0.0-0.4) X10*3/uL Baso # (Auto) (0.0-0.2) X10*3/uL Abs Immat Gran (auto) (0.00-0.03) X10*3/uL Absolute Neuts (auto) (2.0-8.3) x10*3/uL Absolute Nucleated RBC (0.0-0.012) X10*3/uL Nucleated RBC % (auto) (0.0-0.2) /100WBC PT (10.0-13.1) SEC INR (0.9-1.1) APTT (26.0-36.4) SEC Sodium (135-145) mmol/L Potassium (3.3-5.1) mmol/L Chloride (96-108) mmol/L Carbon Dioxide (22-29) mmol/L Anion Gap (12-20) BUN (9-16) mg/dL Creatinine (0.5-1.4) mg/dL Estim Creat Clear Calc Estimated GFR Random Glucose (60-115) mg/dL Calcium (8.4-10.2) mg/dL Total Bilirubin (0.0-1.0) mg/dL AST (5-37) U/L ALT (0-40) U/L Alkaline Phosphatase (39-117) U/L Total Protein (6.5-8.0) g/dL Albumin (3.5-5.0) g/dL Lipase (8-78) U/L Urine Color Yellow Urine Appearance Clear Urine pH 7.0 (5.0-9.0) Ur Specific [place] 1.020 (1.005-1.025) Urine Protein Negative (Neg-Trace) mg/dL Urine Glucose (UA) Negative (Negative) mg/dL Urine Ketones 15 (Negative) mg/dL Urine Blood Negative (Negative) Urine Nitrite Negative (Negative) Ur Leukocyte Esterase Trace H (Negative) Urine RBC 0-2 (0-2) /HPF Urine WBC 0-5 (0-5) /HPF Ur Squamous Epith Cells 0-2 (0-2) /HPF Urine Bacteria None Seen (None Seen) Hyaline Casts 0-2 (0-2) /LPF Radiology Impression Discussion of test interpretation with radiology: I have reviewed the radiologist's reading. Radiologist Impression: FINDINGS: LUNG BASES: Normal. No pulmonary consolidation or pleural effusion.? LIVER: The liver has normal size, shape, and attenuation.? No evidence of liver mass. GALLBLADDER AND BILIARY TREE: Gallbladder is without radiopaque stones, wall thickening or pericholecystic fluid.? No dilated bile ducts. PANCREAS: Normal. No edema, pancreatic ductal dilatation or mass.? SPLEEN: Mild splenomegaly is unchanged compared to 10/01/2022; spleen measures up to 13.9 cm maximum dimension. No focal splenic lesion.? ADRENAL GLANDS: Normal.? KIDNEYS AND URETERS: The kidneys have normal size and cortical thickness. No perinephric edema or fluid collection. No urolithiasis or hydroureteronephrosis. BLADDER:? Normal. No calculi or wall thickening. BOWEL AND PERITONEUM: Stomach is unremarkable. No dilated loops of bowel. The appendix is normal. No overt bowel wall thickening or mesenteric fat stranding. No free fluid or pneumoperitoneum. ABDOMINAL WALL: Unremarkable. No evidence of abdominal wall or inguinal hernia. VASCULATURE: Unremarkable. LYMPH NODES: No pathologic sized lymph nodes in the abdomen or pelvis. No inguinal lymphadenopathy. PELVIC VISCERA: Unremarkable. MUSCULOSKELETAL: No acute or suspicious osseous abnormality.? CT/CT abdomen pelvis w IV con IMPRESSION: *? No acute imaging abnormalities in the abdomen or pelvis compared to 10/01/2022. *? The appendix is normal. No inflammatory changes or obstruction along the gastrointestinal tract. *? Persistent mild splenomegaly. Discharge Plan Discharge Clinical Impression: Abdominal pain Patient Disposition: Home, Self-Care Instructions: Abdominal Pain (ED) Additional Instructions: Please follow-up with your primary care physician tomorrow. If you have any worsening or new symptoms, please return to the emergency room or call 911 Prescriptions: No Action doxycycline monohydrate 100 mg tablet 100 mg PO BID 10 Days Qty: 20 0RF alum-mag hydroxide-simeth [Maalox Advanced] 200-200-20 mg/5 mL suspension 5 ml PO 5XD PRN (Reason: indigestion) Qty: 355 0RF Rx Instructions: administer between meals and at bedtime omeprazole magnesium [Prilosec OTC] 20 mg tablet,delayed release (DR/EC) 20 mg PO BID Qty: 14 0RF Interventions: ED Discharge Assessment Last Done: 03/26/23 20:37
[2023-03-26 16:24] LABS: MANUAL DIFF FLAG NO
[2023-03-26 16:30] LABS: Basophils Percent Auto 0.5 % (0-2); Eosinophils Absolute Auto 0.2 X10*3/uL (0.0-0.4); Eosinophils Percent Auto 2.1 % (0-4); Hematocrit 46.8 % (42.0-52.0); Hemoglobin 16.9 g/dl (14.0-18.0); Imm Gran Abs Auto 0.03 X10*3/uL (0.00-0.03); Imm Gran Pct Auto 0.4 % (0.0-0.4); Lymphocytes Absolute Auto 1.3 X10*3/uL (1.2-4.9); Lymphocytes Percent Auto 15.4 % (20-40); Mean Corpuscular HGB Conc 36.1 g/dl (31.0-36.0); Mean Corpuscular Hemoglobin 31.7 pg (27.0-33.0); Mean Corpuscular Volume 87.8 fL (80.0-98.0); Mean Platelet Volume 9.4 fL (9.4-12.4); Monocytes Absolute Auto 0.4 X10*3/uL (0.1-1.2); Monocytes Percent Auto 5.4 % (2-11); Neutrophils Absolute Auto 6.2 x10*3/uL (2.0-8.3); Neutrophils Percent Auto 76.2 % (45-73); Platelet Count 204 X10*3/uL (160-400); Red Blood Count 5.33 X10*6/uL (4.60-5.80); Red Cell Distribution Width 12.3 % (11.0-16.0); White Blood Count 8.1 X10*3/uL (4.8-10.8)
[2023-03-26 16:32] LABS: Prothrombin Time 11.7 SEC (10.0-13.1)
[2023-03-26 16:35] LABS: Partial Thromboplastin Time 30.2 SEC (26.0-36.4)
[2023-03-26 16:45] LABS: Alanine Aminotransferase 21 U/L (0-40); Albumin Level 4.5 g/dL (3.5-5.0); Alkaline Phosphatase 70 U/L (39-117); Anion Gap 12 (12-20); Aspartate Amino Transferase 15 U/L (5-37); Bilirubin Total 1.1 mg/dL (0.0-1.0); Blood Urea Nitrogen 16 mg/dL (9-16); Calcium 9.5 mg/dL (8.4-10.2); Carbon Dioxide 28 mmol/L (22-29); Chloride 104 mmol/L (96-108); Creatinine Clr Calc Pharmacy 112.8; Estimated Glomerular Filt Rate > 60; Glucose Random 104 mg/dL (60-115); Lipase 28 U/L (8-78); Potassium 4.8 mmol/L (3.3-5.1); Sodium 139 mmol/L (135-145)
[2023-03-26 18:17] VITALS: BP 117/75; PULSE 74; TEMP 36.8; O2SAT 98
[2023-03-26 18:31] LABS: Appearance Urine Clear; Color Urine Yellow; Glucose Urine UA Negative (Negative); Leukocyte Esterase Urine Trace (Negative); Nitrite Urine Negative (Negative); UMIC TRIGGER UACC YES; Urine Blood Negative (Negative); Urine Ketones 15 mg/dL (Negative); Urine Protein Negative (Neg-Trace)
--- NOTE | 2023-03-26 18:39 | PC.NURSE ---
pt c/o RLQ that started about 6 days ago and has gotten progressively worse. pt denies n/v/d. no constipation. no fever/chills/headache. 20g iv inserted RAC. pt getting CTA at this time.
[2023-03-26] MEDS: iohexoL 350 MG/ML 100 ML INFUS..BTL IV (18:45)
[2023-03-26 19:34] VITALS: BP 121/77; PULSE 80; RESP 12; TEMP 36.8; O2SAT 99
[2023-03-26 19:55] LABS: Bacteria Urine None Seen (None Seen); Hyaline Casts Urine 0-2 /LPF (0-2); RBC Urine 0-2 /HPF (0-2); Squamous Epithelial Cell Urine 0-2 /HPF (0-2); WBC Urine 0-5 /HPF (0-5)
== END 2023-03-26 20:39 | disposition home or self-care (01) ==
PROVIDERS: Physician Assistant; Emergency Provider Emergency Medicine
DX: R10.31 Right lower quadrant pain (principal); R10.2 Pelvic and perineal pain; Z79.899 Other long term (current) drug therapy
CPT/HCPCS: 36415; 74177; 80053; 81001; 81003; 83690; 85025; 85610; 85730; 99284; Q9967

== ENCOUNTER 2023-04-22 09:08 | Emergency (ER) | payer OTHER, SELFPAY ==
[2023-04-22 09:18] VITALS: BP 123/77; PULSE 83; RESP 12; TEMP 36.7; O2SAT 97; BMI 28.6
[2023-04-22] MEDS: Doxycycline Monohydrate 100 MG CAPSULE PO (09:46)
[2023-04-22] MEDS: Lidocaine HCl 1 % MPF 5 ML VIAL SUBCUT ×2 (09:47)
--- NOTE | 2023-04-22 10:22 | ED_ITS ---
HPI - General Adult General Chief complaint: General Medical Stated complaint: cyst on shoulder Time Seen by Provider: 04/22/23 09:39 History of Present Illness HPI narrative: patient complains of large cyst on back in right trapezius area, it has been growing over several days and today a lot of fluid came out of it, he has had no fever no chills no other complaints Related Data Previous Rx's Medication Instructions Recorded doxycycline monohydrate 100 mg 100 mg PO BID 10 days #20 tabs 10/01/22 tablet aluminum-mag hydroxide-simethicone 5 ml PO 5XD PRN indigestion #355 mL 10/31/22 200 mg-200 mg-20 mg/5 mL oral susp (Maalox Advanced) omeprazole magnesium 20 mg 20 mg PO BID #14 tabs 10/31/22 tablet,delayed release (Prilosec OTC) doxycycline hyclate 100 mg capsule 100 mg PO BID 7 days #14 caps 04/22/23 ibuprofen 600 mg tablet 600 mg PO Q6H PRN pain #20 tabs 04/22/23 Allergies Allergy/AdvReac Type Severity Reaction Status Date / Time No Known Allergies Allergy Verified 10/31/22 13:58 [facility] Past Medical History Source: nursing notes reviewed Medical History No pertinent past medical history Social History Social History Alcohol intake: never Advance Directives: No Advance Directives Information Provided: No Physical Exam ED Vital Signs: Vital Signs - 24 hr 04/22/23 09:18 Temperature 98.0 F Pulse Rate 83 Respiratory Rate 12 Blood Pressure 123/77 Pulse Oximetry 97 Oxygen Delivery Method Room Air BMI result Body Mass Index 28.6 general appearance no distress The neck is supple Respiratory no distress Skin exam the posterior right trapezius area has an area of fluctuance and redness that is swollen with no surrounding erythema There is full range of motion in neck and shoulder Course Course Course Narrative: patient with isolated area of fluctuance and redness on posterior right trapezius Procedure note it is cleansed with Betadine Anesthesia was 8 cc of 1% lidocaine Incision was made with discharge of scant pussy bloody fluid and a large white cyst was expressed from the area, loculations were broken up packing was placed dressing was applied Medications Administered Discontinued Medications Generic Name Dose Route Start Last Admin Trade Name Freq PRN Reason Stop Dose Admin Doxycycline Monohydrate 100 mg 04/22/23 09:40 04/22/23 09:46 Doxycycline Monohydrate 100 Mg Capsule PO 04/22/23 09:41 100 mg ONCE ONE Administration Lidocaine HCl 5 ml 04/22/23 09:40 04/22/23 09:47 Lidocaine Hcl 1 % Mpf 5 Ml Vial SUBCUT 04/22/23 09:41 5 ml ONCE ONE Administration Lidocaine HCl 5 ml 04/22/23 09:40 04/22/23 09:47 Lidocaine Hcl 1 % Mpf 5 Ml Vial SUBCUT 04/22/23 09:41 5 ml ONCE ONE Administration Discharge Plan Discharge Clinical Impression: Infected sebaceous cyst Patient Disposition: Home, Self-Care Additional Instructions: return to the ER in 2 days for packing removal and wound check Return any time for spreading redness, worse pain swelling, fever, any concern of worsening infection any worse condition or any concerns Prescriptions: New doxycycline hyclate 100 mg capsule 100 mg PO BID 7 Days Qty: 14 0RF ibuprofen 600 mg tablet 600 mg PO Q6H PRN (Reason: pain) Qty: 20 0RF No Action doxycycline monohydrate 100 mg tablet 100 mg PO BID 10 Days Qty: 20 0RF alum-mag hydroxide-simeth [Maalox Advanced] 200-200-20 mg/5 mL suspension 5 ml PO 5XD PRN (Reason: indigestion) Qty: 355 0RF Rx Instructions: administer between meals and at bedtime omeprazole magnesium [Prilosec OTC] 20 mg tablet,delayed release (DR/EC) 20 mg PO BID Qty: 14 0RF
[2023-04-22] MEDS: Ibuprofen 600 MG TABLET PO (10:25)
== END 2023-04-22 10:38 | disposition home or self-care (01) ==
PROVIDERS: Emergency Provider Emergency Medicine
DX: L72.3 Sebaceous cyst (principal); Z79.899 Other long term (current) drug therapy
CPT/HCPCS: 99283

== ENCOUNTER 2023-09-26 15:20 | Outpatient (REF) | payer MEDICAID, SELFPAY ==
[2023-09-26 16:53] LABS: Alanine Aminotransferase 20 U/L (0-40); Albumin Level 4.7 g/dL (3.5-5.0); Alkaline Phosphatase 69 U/L (39-117); Anion Gap 11 (12-20); Aspartate Amino Transferase 14 U/L (5-37); Bilirubin Total 0.9 mg/dL (0.0-1.0); Blood Urea Nitrogen 17 mg/dL (9-16); Calcium 9.5 mg/dL (8.4-10.2); Carbon Dioxide 31 mmol/L (22-29); Chloride 103 mmol/L (96-108); Cholesterol 169 mg/dL (<200); Estimated Glomerular Filt Rate > 60; Glucose Random 94 mg/dL (60-115); HDL Cholesterol 56 mg/dL (>40); LDL Cholesterol Calculated 94 mg/dL (<100); Potassium 4.3 mmol/L (3.3-5.1); Sodium 141 mmol/L (135-145); Total Protein 7.5 g/dL (6.5-8.0); Triglycerides 98 mg/dL (<150)
[2023-09-26 17:10] LABS: TSH reflex Free T4 0.79 uIU/mL (0.32-4.0)
[2023-09-27 09:28] LABS: ~HepC Num1 0.08 S/CO (0.00-0.79); ~Hepatitis C Antibody Nonreactive (Nonreactive)
[2023-09-30 15:08] LABS: HIV RNA PCR Qn Copies Not Detected Copies/mL; HIV RNA PCR Qn Log Copies Not Detected Log cps/mL
== END 2023-09-26 15:21 | disposition home or self-care (01) ==
LOC: HO.HHCL 15:20
PROVIDERS: Visit Provider Nurse Practitioner Family
DX: Z00.00 Encounter for general adult medical examination without abnormal findings (principal); Z11.4 Encounter for screening for human immunodeficiency virus [HIV]; E66.01 Morbid (severe) obesity due to excess calories; Z86.39 Personal history of other endocrine, nutritional and metabolic disease
CPT/HCPCS: 36415; 80053; 80061; 84443; 86803; 87536; 87900

== ENCOUNTER 2024-11-07 11:29 | Outpatient (REF) | payer MEDICAID, SELFPAY ==
[2024-11-07 12:56] LABS: MANUAL DIFF FLAG NO
[2024-11-07 13:04] LABS: Basophils Percent Auto 0.5 % (0-2); Eosinophils Absolute Auto 0.1 X10*3/uL (0.0-0.4); Eosinophils Percent Auto 3.1 % (0-4); Hematocrit 47.3 % (42.0-52.0); Imm Gran Abs Auto 0.01 X10*3/uL (0.00-0.03); Imm Gran Pct Auto 0.2 % (0.0-0.4); Lymphocytes Absolute Auto 1.1 X10*3/uL (1.2-4.9); Lymphocytes Percent Auto 26.3 % (20-40); Mean Corpuscular HGB Conc 35.9 g/dl (31.0-36.0); Mean Corpuscular Hemoglobin 31.7 pg (27.0-33.0); Mean Corpuscular Volume 88.1 fL (80.0-98.0); Mean Platelet Volume 9.5 fL (9.4-12.4); Monocytes Absolute Auto 0.3 X10*3/uL (0.1-1.2); Monocytes Percent Auto 7.7 % (2-11); Neutrophils Absolute Auto 2.6 x10*3/uL (2.0-8.3); Neutrophils Percent Auto 62.2 % (45-73); Platelet Count 202 X10*3/uL (160-400); Red Blood Count 5.37 X10*6/uL (4.60-5.80); Red Cell Distribution Width 12.6 % (11.0-16.0); White Blood Count 4.2 X10*3/uL (4.8-10.8)
[2024-11-07 13:33] LABS: Alanine Aminotransferase 15 U/L (0-40); Albumin Level 4.4 g/dL (3.5-5.0); Alkaline Phosphatase 70 U/L (39-117); Anion Gap 7 (12-20); Aspartate Amino Transferase 13 U/L (5-37); Bilirubin Total 0.9 mg/dL (0.0-1.0); Blood Urea Nitrogen 18 mg/dL (9-16); Calcium 9.1 mg/dL (8.4-10.2); Carbon Dioxide 32 mmol/L (22-29); Chloride 106 mmol/L (96-108); Cholesterol 164 mg/dL (<200); Estimated Glomerular Filt Rate > 60; Glucose Random 80 mg/dL (60-115); HDL Cholesterol 51 mg/dL (>40); Iron 120 mcg/dL (45-160); LDL Cholesterol Calculated 95 mg/dL (<100); Percent Iron Saturation 60 % (15-50); Potassium 4.2 mmol/L (3.3-5.1); Sodium 141 mmol/L (135-145); Total Iron Binding Capacity 199 mcg/dL (228-428); Total Protein 6.9 g/dL (6.5-8.0); Triglycerides 91 mg/dL (<150); Unsaturated Iron Binding 79 ug/dL
[2024-11-07 13:38] LABS: TSH reflex Free T4 0.83 uIU/mL (0.32-4.0)
[2024-11-07 13:52] LABS: Vitamin B12 246 pg/mL (200-900)
== END 2024-11-07 11:30 | disposition home or self-care (01) ==
LOC: HO.HHCL 11:29
PROVIDERS: Visit Provider Nurse Practitioner Family
DX: Z00.00 Encounter for general adult medical examination without abnormal findings (principal)
CPT/HCPCS: 36415; 80053; 80061; 82607; 82746; 83540; 84443; 85025